=== PATIENT | female | born 1960 | race Caucasian/White ===

== ENCOUNTER 2017-11-24 14:27 | Emergency (ER) | payer SELFPAY ==
[~2017-11-24] VITALS: Ht 180.3 cm; Wt 127.0 kg
[2017-11-24 15:04] VITALS: BP 119/72
== END 2017-11-24 17:42 | disposition left against medical advice (07) ==
LOC: ER 14:27
DX: R56.9 Unspecified convulsions (principal); Z53.21 Procedure and treatment not carried out due to patient leaving prior to being seen by health care provider
CPT/HCPCS: 93005